=== PATIENT | female | born 1940 | race Caucasian/White ===

== ENCOUNTER 2022-09-19 05:48 | Day surgery (SDC) | payer MEDICARE, OTHER, SELFPAY ==
[2022-09-19] VITALS (8 sets, daily range): BP systolic 127–170; BP diastolic 56–89; PULSE 75–100; RESP 12–20; TEMP 36.1–36.5; O2SAT 96–100; BMI 27.1
[2022-09-19] MEDS: LACTATED RINGERS 1,000 ML 42 ML IV ×2 (07:17→08:56)
--- NOTE | 2022-09-19 07:22 | PM.HP.1 ---
History of Present Illness History of Present Illness Date Patient Seen: 09/19/22 Time Patient Seen: 07:24 Chief complaint: SD Narrative: Radha is a 81-year-old female who has had left shoulder pain since April of 2022 when she fell into a door jam. She is completing physical therapy, taken anti-inflammatories, ice and heat and all other conservative management over the last several months. She is still having pain every day and waking up at night. She is here for rotator cuff repair today. Of note she has prior vocal cord surgery and will need pediatric tube, she also has pacemaker and has cardiac clearance for today and has been deemed by Dr. Sixto hawkins to be low risk. She previously discussed stopping her aspirin 7 days before surgery and she will restart it postoperative day 1 [facility] Medical History (Updated 09/19/22 @ 07:15 by Seema Hutchinson RN) HTN (hypertension) LIEN on CPAP Pacemaker (~2019) Social History household members: none Smoking Status: Never smoker alcohol intake: current Meds Home Medications and Allergies Home Medications Medication Instructions Recorded Confirmed Type amlodipine 10 mg tablet 10 mg PO DAILY 09/19/22 09/19/22 History aspirin 81 mg tablet,delayed 81 mg PO DAILY 09/19/22 09/19/22 History release atorvastatin 20 mg tablet 20 mg PO BEDTIME 09/19/22 09/19/22 History furosemide 20 mg tablet (Lasix) 10 mg PO DAILY 09/19/22 09/19/22 History gabapentin 300 mg tablet 300 mg PO BID 09/19/22 09/19/22 History losartan 50 mg tablet 50 mg PO BID 09/19/22 09/19/22 History omeprazole 40 mg capsule,delayed 40 mg PO DAILY 09/19/22 09/19/22 History release scopolamine base 1 mg over 3 days 1 patch transdermal Q3D PRN Nausea 09/19/22 09/19/22 History transdermal patch Allergies Allergy/AdvReac Type Severity Reaction Status Date / Time cephalexin [From Keflex] Allergy Severe Anaphylaxis Verified 09/19/22 06:50 erythromycin base Allergy Intermediate Hives Verified 09/19/22 06:50 Review of Systems Review of Systems ROS: Yes All systems reviewed with the patient and are negative except as otherwise documented Exam Vital Signs (past 8 hours): - 09/19/22 06:57 Temperature 97.7 F Pulse Rate 89 Respiratory Rate 19 Blood Pressure 170/73 H Pulse Oximetry 100 Oxygen Delivery Method Room Air Oxygen Delivery Method Room Air Narrative Exam Narrative: HEENT: Head atraumatic eyes anicteric moist mucous membranes Cardiovascular: Palpable peripheral pulses extremities are warm and well perfused Respiratory: Breathing comfortably on room air Psychiatric: Appropriate mood and affect Neuro: No acute deficits Musculoskeletal: Exam of the left upper extremity demonstrates weakness on exam as well as pain throughout range of motion as noted in previous clinic notes (forward elevation 95 active, 160 passive, ER 30 active, 60 passive. 4/5 strength with empty can and external rotation). No specific changes. Sensation intact to median, radial, ulnar nerve distributions. 2+ radial pulse brisk capillary refill less than 2 seconds. Assessment & Plan Assessment & Plan narrative: Assessment: 81-year-old female with left rotator cuff tear Plan: Discussed operative treatment which would include arthroscopic rotator cuff repair, possible biceps tenotomy versus tenodesis, and subacromial decompression and acromioplasty. Risks and benefits of surgery were discussed again including the risk of infection, damage to internal structures, bleeding, nerve injury, instability, need for revision surgery, blood clots, anesthesia and . No guarantees were made regarding outcomes. Patient expressed understanding and accepted these risks and wished to go forward with surgery and consent was signed. She expressed understanding with these risks and wished to go forward with surgery.
[2022-09-19] MEDS: CEFAZOLIN 2 GM/100 ML PREMIX 100 ML IV (08:00)
[2022-09-19] MEDS: TRANEXAMIC ACID 1,000 MG VIAL 1000 MG INH (08:00)
--- NOTE | 2022-09-19 08:36 | SUR.OPER ---
Lateral on a reddy bag, head on pillow, gel axillary roll in place, bottom leg bent with gel pad under knee to foot, upper leg straight and supported with pillows. Upper arm supported by pillows and secured over bottom arm to padded arm board. Safety belt at hip, tape over blanket lower legs.
[2022-09-19] MEDS: BUPIVACAINE 0.5% (PF) 30 ML, EPINEPHrine 0.15 MG INJ (08:52)
[2022-09-19] MEDS: EPINEPHrine 1 MG/ML IRR (10:20)
[2022-09-19] MEDS: OXYCODONE/ACETAMINOPHEN 5/325 TABLET 1 TAB PO (10:51)
--- NOTE | 2022-09-19 10:57 | P.OP_ITS ---
Operative Date/Time/Diagnoses Date of procedure: 09/19/22 Time of procedure: 10:58 Pre-op diagnosis: Left shoulder rotator cuff tear Post-op diagnosis: same Procedure & Clinicians Procedure: Left shoulder rotator cuff repair, subacromial decompression, acromioplasty, biceps tenodesis, subscapularis repair Same procedure as scheduled: No Indications: Indications: Radha Has a history of left shoulder pain. Has had no response thus far to nonoperative treatment. We discussed at length that surgery for a rotator cuff tear is primarily for pain and no guarantees were made regarding strength and range of motion. Patient was again explained the risks, benefits and alternatives to surgery. All questions were answered. The patient wished to proceed. 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 There is degenerative changes noted to the labrum anteriorly and posteriorly Biceps tendon: Very synovitic and thickened and scarred into the capsule partially Subscapularis: Upper border torn partially Inferior capsule: Intact Rotator cuff: The supraspinatus and infraspinatus were torn from their insertion on the greater tuberosity and retracted Subacromial space: Extensive synovitis Closure Type: primary Specimen(s): none sent Prosthetic devices, grafts, tissues, transplants, or devices: SwiveLock anchor x4 Estimated Blood Loss (mL): 10 Blood products transfused: none Procedure in detail: The patient was seen preoperatively. Risks and benefits were explained, and my initials were marked on the left shoulder. A block was performed by anesthesia. The patient was brought to the operating room and placed supine on the operating table and underwent smooth induction of general anesthesia. 2 g of Ancef were given intravenously prior to the start of the operation, and 1 g of TXA was also given. The arm was prepped and draped in the standard sterile fashion using chlorhexidine. Appropriate drying time was observed. Before beginning the procedure, a time-out was performed and again my initials were confirmed the correct side. 15 cc of 0.25% Marcaine with epinephrine were injected into the subacromial space prior to start. A standard posterior portal was then established. On entering the glenohumeral joint there was moderate grade 2 cartilage pathology of the glenoid and humeral head. An anterior portal was established outside in. In the glenohumeral joint, the biceps was noted to be synovitic and quite thickened and the subscapularis was partially frayed at the upper border. The undersurface of the rotator cuff was noted to be torn over the complete anterior to posterior distan ce of the supraspinatus and part of the infraspinatus. The inferior capsule was noted to be intact. There was some labral degeneration noted both anterior and posterior. Extensive synovitis noted. After diagnostic arthroscopy, the biceps long head was captured with a FiberWire and released. The subscapularis tendon was also captured with a FiberWire. Both were then placed into a single knotl ess SwiveLock anchor in the bicipital groove. We then established into the subacromial space and a lateral portal was made. A bursectomy was then performed. The coracoclavicular ligament was minimally released off the anterior acromion and a gentle acromioplasty was performed enough for better visualization and to remove significant spurs. Once bursectomy, and acromioplasty were performed we had full visualization of the rotator cuff. It was noted at this time that the patient had a large 2 cm rotator cuff tear involving the supraspinatus and anterior part of the infraspinatus. We then freshened up the footprint with a shaver and debrided the cuff tear edges. Two medial row Anchors were placed. I then passed sequentially from anterior to posterior using swedged sutures. A ?JET bridge? was tied between the anchors using the sliding sutures. The wedges were cut from the 2 medial row anchor FiberTape, and these were placed into trans osseous equivalent lateral row anchors. The wounds were closed with 2-0 nylon and dressed with Xeroform, 4x4s, ABDs and they were placed into a sling. Patient was woken from anesthesia and transported to recovery unit without any complications. Assisting participation: This operation could not have been safely performed (without compromising the technical results or length of the procedure) without the assistance of a skilled instructor adjunct surgical technician. The instructor adjunct surgical technician was medically necessary for proper positioning, retraction and manipulation of instruments, proper exposure, graft prep, and manipulation of tissue. Complications: none Post-operative Condition: stable Disposition: PACU Plan for aftercare: Postoperatively patient will be nonweightbearing to the operative extremity. Must remain in a sling for 6 weeks with no active range of motion. Okay for dressings to come off in 3 days, take a shower with warm soap and water and then placed Band-Aids over the wounds. After a total of 5 days from surgery all dressings may come off. Keep follow-up appointment in 2 weeks.
--- NOTE | 2022-09-19 11:34 | SUR.PHASEII ---
pt was given detailed discharge instructions. Pt states she understands discharge instructions. Pt states pain is about a 3. Pt does not want anything else for pain. Pt talking and drinking soda. Pt awaiting her ride which will take an hour to get here from [place].
--- NOTE | 2022-09-19 12:16 | SUR.PHASEII ---
pt sitting up and waiting for her ride. Pt states she is feeling well. Pt up in wheelchair. Pt had voided prior to getting dressed. Pt states pain is a 3.
--- NOTE | 2022-09-19 12:19 | SUR.PHASEII ---
pt sitting in chair waiting for ride. Eating crackers and drinking soda.
== END 2022-09-19 12:25 | disposition home or self-care (01) ==
PROVIDERS: PCP Otolaryngology; Referring Provider Orthopaedic Surgery; Visit Provider Orthopaedic Surgery
PROC: (CPT 29827; principal; 2022-09-19 07:45)
DX: S46.012A Strain of muscle(s) and tendon(s) of the rotator cuff of left shoulder, initial encounter (principal); S46.812A Strain of other muscles, fascia and tendons at shoulder and upper arm level, left arm, initial encounter; M19.012 Primary osteoarthritis, left shoulder; M75.42 Impingement syndrome of left shoulder; W01.198A Fall on same level from slipping, tripping and stumbling with subsequent striking against other object, initial encounter; Y92.009 Unspecified place in unspecified non-institutional (private) residence as the place of occurrence of the external cause; Z95.0 Presence of cardiac pacemaker; M94.212 Chondromalacia, left shoulder; G89.18 Other acute postprocedural pain
CPT/HCPCS: 29827; 29828; 29826; 64415; J0171; J0330; J0690; J1100; J2250; J2405; J2704; J3010